=== PATIENT | female | born 1940 | race Caucasian/White ===

== ENCOUNTER 2017-06-25 08:55 | Emergency (ER) | payer MEDICARE, OTHER ==
[~2017-06-25] VITALS: Ht 157.5 cm; Wt 74.8 kg
[~2017-06-25 08:55] MED LIST: AGGRENOX 25 MG-1 CAP PO; ALLOPURINOL100 MG PO; BIOTIN10 MG PO; BYSTOLIC10 MG PO; CENTRUM SILVER1 EAC3 PO; CLONIDINE HCL0.1 MG PO; COQ-10100 MG PO; DOXAZOSIN MESYLA2 MG PO; DOXAZOSIN MESYLA4 MG PO; ECOTRIN81 MG PO; FAMOTIDINE40 MG PO; FEROSUL325 MG PO; FUROSEMIDE40 MG PO; GABAPENTIN300 MG PO; L-METHYL-B6-B11 EACH PO; LIPITOR20 MG PO; MAG-OXIDE400 MG PO; METFORMIN HCL500 MG PO; METOPROLOL SUCC50 MG PO; NIFEDICAL XL30 MG PO; NIFEDIPINE ER30 M1 PO; NITROSTAT0.4 MG SL; PLAVIX75 MG PO; PRINIVIL10 MG PO; PRINIVIL20 MG PO; PROCARDIA XL30 MG PO; VITAMIN D31000 UNIT PO
[2017-06-25 12:17] VITALS: BP 133/72
== END 2017-06-25 11:05 | disposition home or self-care (01) ==
LOC: FSED 08:55
DX: R50.9 Fever, unspecified (principal); R05 Cough; J11.1 Influenza due to unidentified influenza virus with other respiratory manifestations
CPT/HCPCS: 71046; 87400; 99283

== ENCOUNTER 2018-11-25 11:35 | Emergency (ER) | payer MEDICARE, OTHER ==
[~2018-11-25] VITALS: Ht 157.5 cm; Wt 77.1 kg
--- OUTSIDE RECORDS SUMMARY | 2018-11-25 11:37 | XMS REPORT | Clinical Summary ---
Author Author LUANA [facility] Address Unknown Phone Unavailable Care Team Providers Care Resident Care Technician Name Role Phone Fred Julian PCP Darci Michel 31 Unavailable Allergies Comments Active Allergy Reactions Severity Noted Date Heart cath dye had itching and red spots Dye 08/25/2015 ITCHING AND RED SPOTS Iodinated Contrast- Oral Medium 08/25/2015 And Iv Dye Redness Benzalkonium Chloride Other (See 08/25/2015 Comments) Medications End Date Status Medication Sig Dispensed Refills Start Date Active aspirin 81 MG EC tablet Take 81 mg by 0 mouth daily. Active allopurinol (ZYLOPRIM) Take 100 mg 0 100 MG tablet by mouth daily. Active gabapentin (NEURONTIN) Take 300 mg 0 300 MG capsule by mouth daily. Active atorvastatin (LIPITOR) 20 Take 20 mg by 0 MG tablet mouth daily. Active abeynziw-bwm-YQ-lycopen-l Take by mouth 0 utein 0.4-300-250 daily. mg-mcg-mcg Tab Active ferrous sulfate 325 (65 Take 325 mg 0 FE) MG tablet by mouth daily with breakfast. Active biotin 1 mg tablet Take 1,000 0 mcg by mouth daily. Active LEVOMEFOLATE/B6/B12/ALGAL Take by mouth 0 OIL (METANX, ALGAL OIL, daily. ORAL) Active cholecalciferol (VITAMIN Take 1,000 0 D3) 1,000 unit tablet Units by mouth daily. 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 Wound infection 11/03/2015 Superficial postoperative wound infection 10/27/2015 Coronary artery disease involving [place] coronary artery of [place] heart 09/07/2015 with other form of angina pectoris CAD (coronary artery disease) 08/27/2015 Cancer of kidney 08/27/2015 HTN (hypertension) 08/27/2015 HLD (hyperlipidemia) 08/27/2015 Myocardial infarction, old 08/27/2015 Social History Date Tobacco Use Types Packs/Day Years Used Passive Smoke Exposure - Never Smoker Smokeless Tobacco: Never Used Alcohol Use Drinks/Week oz/Week Comments Yes ONE X PER MONTH Sex Assigned at Date Recorded Not on file Industry Job Start Date Occupation Not on file Not on file Not on file Travel End Travel History Travel Start No recent travel history available. Last Filed Vital Signs Not on file Plan of Treatment Not on file Results Not on fileafter 11/24/2017 Insurance Payer Benefit Subscriber ID Type Phone Address Plan / Group MEDICARE MEDICARE A xxxxxxxxxx Medicare B AETNA - MGD CARE AETNA xxxxxxxxxx Comm INDEMNITY NON CONTR Advance Directives For more information, please contact: [facility] [address] [place] [address] Date Inactivated Comments Code Status Date Activated 10/27/2015 2:55 PM Full Code 10/26/2015 2:52 PM This code status was determined by: Patient 09/14/2015 2:10 PM Full Code 09/07/2015 11:52 AM This code status was determined by: Patient
--- OUTSIDE RECORDS SUMMARY | 2018-11-25 11:37 | XMS REPORT ---
Author Author Chino Collins Organization [employer] Address Unknown Phone Unavailable Care Team Providers Care Admitting Officer Name Role Phone Chino Collins CP Unavailable Allergies, Adverse Reactions, Alerts Substance Reaction Event Type Neosporin Info Not Available Drug Allergy Problems Problem Type Condition Code Onset Dates Condition Status Assessment Tinnitus, bilateral H93.13 Active Assessment Sinusitis - Chronic J32.8 Active Assessment Nasal airway obstruction J34.89 Active Problem Sinusitis - Chronic J32.8 Active Problem Zoster without complications B02.9 Active Problem Nasal airway obstruction J34.89 Active Problem Benign paroxysmal vertigo, left ear H81.12 Active Assessment Zoster without complications B02.9 Active Problem Tinnitus, bilateral H93.13 Active Problem Impacted cerumen, bilateral H61.23 Active Medications Medication Code System Code Instructions Start Date End Date Status Dosage Centrum Silver [facility] 84735040160 - Orally Active not defined Pantoprazole Sodium [facility] 43433542268 40 MG Orally Once a day Active 1 tablet Allopurinol [facility] 06848054620 100 MG Orally Once a day Active 1 tablet Ecotrin [facility] [address]-74 Active not defined Lisinopril ND 13107820933 20 MG Orally Once a day Active 1 tablet Gabapentin [facility] 89535278851 300 MG Orally Three times a day Active 1 capsule Meclizine HCl [facility] 04880616137 25 MG Orally Four times a day PRN Jan 10, 2017 Active 1 tablet as needed Metoprolol Succinate ER ND 02977565470 50 MG Orally Once a day Active 1 tablet NIFEdipine [facility] [address]-15 Active not defined Co Q-10 [facility] 22377495706 200 MG Orally Once a day Active 1 capsule with a meal D3 Adult [facility] [address]56 Active not defined Atorvastatin Calcium ND 41515629164 20 MG Orally Once a day Active 1 tablet Biotin [facility] 12341198633 1000 MCG Orally Once a day Active 1 tablet Furosemide ND 01947350552 20 MG Orally Once a day Active 1 tablet Ferrous Sulfate [facility] [address]-91 Active not defined Results No Known Results Summary Purpose [employer] Submission
== END 2018-11-25 12:31 | disposition home or self-care (01) ==
LOC: FSED 11:35
DX: M54.2 Cervicalgia (principal); R51 Headache; M54.12 Radiculopathy, cervical region; I10 Essential (primary) hypertension; E78.5 Hyperlipidemia, unspecified; E11.40 Type 2 diabetes mellitus with diabetic neuropathy, unspecified; Z95.1 Presence of aortocoronary bypass graft
CPT/HCPCS: 99282

== ENCOUNTER 2019-01-21 03:21 | Observation (INO) | payer MEDICARE ==
[~2019-01-21] VITALS: Ht 157.5 cm; Wt 78.0 kg
[2019-01-21] VITALS (11 sets, daily range): BP systolic 120–164; BP diastolic 57–89
--- OUTSIDE RECORDS SUMMARY | 2019-01-21 03:23 | XMS REPORT | Clinical Summary ---
Author Author [facility]UANA [facility] Address Unknown Phone Unavailable Care Team Providers Care Fundraising Manager Name Role Phone Fred Julian PCP Darci Michel 31 Unavailable Allergies Comments Active Allergy Reactions Severity Noted Date Heart cath dye had itching and red spots Dye 08/25/2015 ITCHING AND RED SPOTS Iodinated Contrast Media Medium 08/25/2015 Redness Benzalkonium Chloride Other (See 08/25/2015 Comments) [...] by 0 MG tablet mouth daily. Active oelqtqbw-khj-QW-lycopen-l Take by mouth 0 utein 0.4-300-250 daily. [...] wound infection 10/27/2015 Coronary artery disease involving [place] coronary artery of [place] heart 09/07/2015 with other form of angina [...] Not on file Results Not on fileafter 01/20/2018 Insurance Payer Benefit Subscriber ID Type Phone Address Plan / Group MEDICARE MEDICARE A xxxxxxxxxx Medicare B AETNA - MGD CARE AETNA xxxxxxxxxx Comm INDEMNITY NON CONTR Advance Directives For more information, please contact: [facility] [address] [place] [address] Date Inactivated Comments Code Status Date Activated 10/27/2015 2:55 PM Full Code 10/26/2015 2:52 PM This code status was determined by: Patient 09/14/2015 2:10 PM Full Code 09/07/2015 11:52 AM This code status was determined by: Patient
--- OUTSIDE RECORDS SUMMARY | 2019-01-21 03:23 | XMS REPORT | Continuity of Care Document ---
Author Author [employer] Address Unknown Phone Unavailable Care Team Providers Care Dairy Husbandry Worker Name Role Phone [facility] [employer] Unavailable Unavailable Problems No Data Provided for This Section Medications Medication Details Route Status Patient Instructions Ordering Provider Order Date Source Clonidine Hcl 0.1 Mg Tablet, 1 Tab Oral As Needed as needed for High Blood Pressure Active 07/25/2016 [facility] Famotidine 40 Mg Tablet, Mg Oral Daily Active 07/25/2016 [facility] Magnesium Oxide (Mag-Oxide) 400 Mg Tablet, Mg Oral Three Times A Day Active 07/25/2016 [facility] Metformin Hcl 500 Mg Tablet, 500 Mg Oral Twice A Day Active 07/25/2016 [facility] Methyl-B12/L-Mefolate/B6 Phos (E-Zoftsi-R7-B12 Tablet) 1 Each Tablet, Oral Daily Active 07/25/2016 [facility] Nebivolol Hcl (Bystolic) 10 Mg Tablet, 20 Mg Oral Daily Active 07/25/2016 [facility] Clonidine Hcl 0.1 Mg Tablet, 1 Tab Oral As Needed as needed for High Blood Pressure Active 07/25/2016 [facility] Famotidine 40 Mg Tablet, Mg Oral Daily Active 07/25/2016 [facility] Magnesium Oxide (Mag-Oxide) 400 Mg Tablet, Mg Oral Three Times A Day Active 07/25/2016 [facility] Metformin Hcl 500 Mg Tablet, 500 Mg Oral Twice A Day Active 07/25/2016 [facility] Atorvastatin Calcium (Lipitor) 20 Mg Tablet Bedtime Active [place] 03/30/2014 [facility] Ferrous Sulfate (Ferosul) 325 Mg Tablet Daily Active [place] 03/30/2014 [facility] Clopidogrel Bisulfate (Plavix) 75 Mg Tablet, 75 Mg Oral Daily Active [place] 03/30/2014 [facility] Dipyridamole/Aspirin (Aggrenox 25 Mg-200 Mg Capsule) 1 Cap Capcr, Mg Oral Twice A Day Active 03/30/2014 [facility] Doxazosin Mesylate 4 Mg Tablet, Mg Oral Daily Active 03/30/2014 [facility] Lisinopril (Prinivil) 10 Mg Tablet, 20 Mg Oral Daily Active [place] 03/30/2014 [facility] Nifedipine (Nifedical Xl) 30 Mg Tab.er.24, 30 Mg Oral Daily Active 03/30/2014 [facility] Nitroglycerin (Nitrostat) 0.4 Mg Tab.subl, 0.4 Mg Sublingual Once as needed for Chest Pain Active [place] 03/30/2014 [facility] Atorvastatin Calcium (Lipitor) 20 Mg Tablet Bedtime Active [place] 03/30/2014 [facility] Ferrous Sulfate (Ferosul) 325 Mg Tablet Daily Active [place] 03/30/2014 [facility] Dipyridamole/Aspirin (Aggrenox 25 Mg-200 Mg Capsule) 1 Cap Capcr, Mg Oral Twice A Day Active 03/30/2014 [facility] Lisinopril (Prinivil) 10 Mg Tablet, 20 Mg Oral Daily Active [place] 03/30/2014 [facility] Nifedipine (Nifedical Xl) 30 Mg Tab.er.24, 30 Mg Oral Daily Active 03/30/2014 [facility] Nitroglycerin (Nitrostat) 0.4 Mg Tab.subl, 0.4 Mg Sublingual Once as needed for Chest Pain Active [place] 03/30/2014 [facility] Doxazosin Mesylate 2 Mg Tablet, Unknown Dose Oral Daily Active 03/27/2014 [facility] Nebivolol Hcl (Bystolic) 10 Mg Tablet, 10 Mg Oral Daily Active 03/27/2014 [facility] Nifedipine (Procardia Xl) 30 Mg Tab.er.24, 30 Mg Oral Daily Active 03/27/2014 [facility] Nifedipine (Procardia Xl) 30 Mg Tab.er.24, 30 Mg Oral Daily Active 03/27/2014 [facility] Allopurinol 100 Mg Tablet Daily Active [facility] Aspirin (Ecotrin) 81 Mg Tablet.dr Daily Active [facility] Biotin 10 Mg Tablet Daily Active [facility] Cholecalciferol (Vitamin D3) (Vitamin D3) 1,000 Unit Capsule Daily Active [facility] Furosemide 40 Mg Tablet As Needed Active [facility] Gabapentin 300 Mg Capsule Bedtime Active [facility] Lisinopril (Prinivil) 20 Mg Tablet Twice A Day Active [facility] Metoprolol Succinate 50 Mg Tab.er.24h Twice A Day Active [facility] Mu-Vits-Min Th/Lycopene/Lutein (Centrum Silver Tablet) 1 Each Tablet Daily Active [facility] Nifedipine (Nifedipine Er) 30 Mg Tab.er.24 Bedtime Active [facility] Ubidecarenone (Coq-10) 100 Mg Capsule Daily Active [facility] Allopurinol 100 Mg Tablet Daily Active [facility] Biotin 10 Mg Tablet Daily Active [facility] Cholecalciferol (Vitamin D3) (Vitamin D3) 1,000 Unit Capsule Daily Active [facility] Furosemide 40 Mg Tablet As Needed Active [facility] Lisinopril (Prinivil) 20 Mg Tablet Twice A Day Active [facility] Metoprolol Succinate 50 Mg Tab.er.24h Twice A Day Active [facility] Allergies, Adverse Reactions, Alerts Substance Category Reaction Severity Reaction type Status Date Reported Comments Source Iodine IV IODINE-RASH Unknown Allergy to Substance Active 07/27/2016 [facility] Neomycin RASH Unknown Allergy to Substance Active 07/27/2016 [facility] Bacitracin RASH Unknown Allergy to Substance Active 07/27/2016 [facility] Polymyxin b RASH Unknown Allergy to Substance Active 07/27/2016 [facility] Tramadol Intermediate Allergy to Substance Active 11/25/2018 [facility] Immunizations No Data Provided for This Section Results No Data Provided for This Section Pathology Reports No Data Provided for This Section Diagnostic Reports No Data Provided for This Section Consultation Notes No Data Provided for This Section Discharge Summaries No Data Provided for This Section History and Physicals No Data Provided for This Section Vital Signs No Data Provided for This Section Encounters Location Location Details Encounter Type Encounter Number Reason For Visit Attending Provider ADM Date DC Date Status Source Departed Emergency Room [id number] AQUILES BALDEMAR 06/25/2017 06/25/2017 [facility] Departed Emergency Room [id number] JOSE YO MD 11/25/2018 11/25/2018 [facility] Procedures No Data Provided for This Section Assessment and Plan No Data Provided for This Section Plan of Care Plan of Care Date Source Discharge Date 11/25/18 12:31pm Disposition HOME, SELF-CARE Condition at Discharge Stable Instructions/Education Provided Strains Prescriptions See Medication Section Referrals BRIAN BEJARANO Address: [address] [place] [address] Additional Instructions/Education FOLLOW UP WITH PRIMARY CARE DOCTOR TAKE MEDICATIONS DIRECTED USE ICE AND HEAT NEEDED FOR PAIN 11/25/2018 [facility] Discharge Date 06/25/17 11:05am Disposition HOME, SELF-CARE Condition at Discharge Stable Instructions/Education Provided Flu - Adult Prescriptions See Medication Section 06/25/2017 [facility] Social History Social History Date Source Smoking Status Start Date Stop Date Never Smoker 11/25/2018 [facility] Family History No Data Provided for This Section Advance Directives Order Name Results Value Date Source Advance Directives Advance Directives Directive Response Recorded Date/Time Does the patient have an advance directive? Yes 07/24/16 2:00pm If yes, is advance directive on file with [facility]? No 03/07/11 4:02pm If not on file with [facility] will patient provide a copy? Yes 07/27/16 7:06am 11/25/2018 [facility] Advance Directives Advance Directives Directive Response Recorded Date/Time Does the patient have an advance directive? Yes 07/24/16 2:00pm If yes, is advance directive on file with [facility]? No 03/07/11 4:02pm If not on file with [facility] will patient provide a copy? Yes 07/27/16 7:06am Do you have a Directive to Physician? No 06/25/17 9:30am Do you have a Medical Power of Property Worker? No 06/25/17 9:30am Do you have an out of hospital Do Not Resuscitate Order? No 06/25/17 9:30am Do you have any special needs we should be aware of? No 06/25/17 9:30am Do you have a support person here with you today? Yes 06/25/17 9:30am Did patient receive Notice of Privacy Practices? Yes 06/25/17 9:30am Did patient receive patient rights and responsibilities? Yes 06/25/17 9:30am 06/25/2017 [facility] Functional Status No Data Provided for This Section
--- OUTSIDE RECORDS SUMMARY | 2019-01-21 03:23 | XMS REPORT ---
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 Allergies, Adverse Reactions, Alerts Allergy Name Allergy Type Status Severity Reaction(s) Onset Date Inactive Date Treating Clinician Comments neomycin DA Active U 2018-12-02 00:00:00 bacitracin DA Active U 2018-12-02 00:00:00 tramadol DA Active U 2018-12-02 00:00:00 polymyxin B DA Active U 2018-12-02 00:00:00 NEOSPORIN DA Active U 2008-06-05 00:00:00 No Known Contrast Allergies DA Active U 2008-06-05 00:00:00 No Known Food Allergies DA Active U 2008-06-05 00:00:00 No Known Other Allergies DA Active U 2008-06-05 00:00:00 Medications This patient has no known medications. Results Test Description Test Time Test Comments Text Results Atomic Results Result Comments - XR C-SPINE 4-5 V 2019-01-01 16:11:00 FAX: Fred Mars MD [phone] [place]: St: [facility] FAX: Radhames Richard MD [phone] Name: LESLIE RAMIREZ [facility] : 1940 Age/S: 78/F Lakisha Calloway Unit #: [id number] Loc: [place] [address] Phys: Radhames Cook MD Acct: [id number] Dis Date: Status: REG CLI PHONE #: [phone] Exam Date: 01/01/2019 1200 FAX #: [phone] Reason: CERVICAL DISC HERNIATION EXAMS: CPT CODE: [id number] XR C-SPINE 4-5 V 68977 HISTORY: CERVICAL DISC HERNIATION TECHNIQUE: AP, flexion and extension, lateral, and open mouth odontoid views of the cervical spine. COMPARISON: Radiographs of the cervical spine December 05, 2018 FINDINGS: Postsurgical changes of anterior fusion of C4-C7 with interbody implants. Vertebral body alignment is satisfactory. Residual disc spaces are preserved. Vertebral body heights are preserved. No prevertebral soft tissue swelling. Lung apices are clear. IMPRESSION: Satisfactory alignment of the cervical spine following C4-C7 fusion with interbody implants. at 1611 Reported and signed by: Dean Gandhi MD CC: Fred Julian; Radhames Cook MD Technologist: Merari Adkins(Snuil) Trnscrd Date/Time/By: 01/01/2019 (6600) : By: [email or web address] Orig Print D/T: S: 01/01/2019 (5959) PAGE 1 Signed Report INTERVERTEBRAL DISC 2018-12-05 16:42:00 RUN DATE: 12/05/18 [place] - Lab PAGE 1 RUN TIME: 1642 Specimen Inquiry RUN USER: INTERFACE PATIENT: LESLIE RAMIREZ LOC: [place] U #: [id number] AGE/SX: 78/F [facility]: Radhames Cook MD : 40 BED: A DIS: 12/05/18 STATUS: DIS Sonya TLOC: SPEC #: [id number] RECD: 12/04/18 STATUS: JUANITO RE #: [id number] HELEN: 12/04/18- SUBM DR: Radhames Cook MD ENTERED: 12/04/182685 SP TYPE: INT DISC OTHR DR: Eliceo Huff MD, William W DO Murphy, Thomas J MD Younis, Antoine G MDORDERED: PURVI COPIES TO: Eliceo Huff MD [address] [place] [address] Morgan Jackson DO [address] [place] [address] [place] [address] [place] [address] Radhames Cook MD [address] [place], [place] [id number] Jona Noe MD [address] [place] [address] PROCEDURES: GROSS (12/05/18-1543) TISSUES: CERVICAL VERTEBRA, NOS - DISC CLINICAL HISTORY COLLECTION DATE: 12/04/18 C4-5, C5-6, C6-7, SPONDYLOSIS AND SPINAL STENOSIS CONTINUED ON NEXT PAGE RUN DATE: 12/05/18 [facility] PAGE 2 RUN TIME: 1642 Specimen Inquiry RUN USER: INTERFACE SPEC #: [id number] PATIENT: LESLIE RAMIREZ #[id number] (Continued) FINAL DIAGNOSIS Cervical disc material, C4-C7, discectomy: FRAGMENTS OF CARTILAGE WITH DEGENERATIVE CHANGE FRAGMENTS OF UNREMARKABLE TRABECULAR BONE NEGATIVE FOR MALIGNANCY RRB/denis D 32279, 38468 MACROSCOPIC The specimen is received in formalin, labeled with the patient's name, and identified as "cervical disc". It consists of multiple fragments of davison soft and rubbery tissue and minute portions of bone measuring 2.5 x 2.0 x 0.6 cm in aggregate. The specimen is entirely submitted in a single cassette after light decalcification. GROSS PERFORMED AT [facility] [address] [place] [address] [phone] MICROSCOPIC All of the stains, including any controls performed, stain appropriately. MICROSCOPIC PERFORMED AT [facility] [address] [place] [address] (P)[phone] PERFORMING SITE Diagnosis performed at: [facility], [place] [address] [facility], [place] [address] Signed SIGNATURE ON FILE Dennis Brooke MD 12/05/18 1642 END OF REPORT - XR C-SPINE 2-3 VIEWS 2018-12-05 08:07:00 FAX: Fred Mars MD [phone] [place]: B St: ADM FAX: Radhames Richard MD [phone] FAX: Jona Smith MD [phone] Name: LESLIE RAMIREZ [facility] : 1940 Age/S: 78/F [address] Unit #: [id number] Loc: V.[address] [place] [address] Phys: Radhames Cook MD Acct: [id number] Dis Date: Status: ADM IN PHONE #: [phone] Exam Date: 12/05/2018 0748 FAX #: [phone] Reason: Status post fusion EXAMS: CPT CODE: [id number] XR C-SPINE 2-3 VIEWS 85948 HISTORY: Status post fusion TECHNIQUE: AP and lateral views of the cervical spine. COMPARISON: None FINDINGS: Craniocervical and cervicothoracic articulations are appropriate. Degenerative changes of the anterior atlantoaxial joint. C4-C7 discectomy with interbody implants and anterior fusion plate. Postoperative vertebral body alignment is satisfactory. Vertebral body heights are preserved. Residual disc spaces are preserved. Cervical facet arthrosis. Postoperative prevertebral soft tissue swelling. Lung apices are clear. IMPRESSION: Status post anterior C4-C7 discectomy and fusion. at 0807 Reported and signed by: Melly Moreau D.O. CC: Fred Julian; Radhames Cook MD; Jona Noe Technologist: VOLODYMYR PEREZ JR Trnscrd Date/Time/By: 12/05/2018 (0807) : By: [email or web address] Orig Print D/T: S: 12/05/2018 (0811) PAGE 1 Signed Report GLUBED 2018-12-04 09:06:00 GLUBED (test code=GLUBED) 113 mg/dL 74-106 Performed by certified automatic die cutting machine operator at [facility] BASIC METABOLIC [id number] 12:29:00* Test Item Value Reference Range Comments SODIUM (test code=NA) 140 mmol/L 136-145 POTASSIUM (test code=K) 4.6 mmol/L 3.5-5.1 CHLORIDE (test code=CL) 107.0 mmol/L 98-107 CARBON DIOXIDE (test code=CO2) 25.0 mmol/L 21-32 ANION GAP (test code=GAP) 12.6 10-20 GLUCOSE (test code=GLU) 115 mg/dL 74-106 BLOOD UREA NITROGEN (test code=BUN) 34 mg/dL 7-18 GLOMERULAR FILTRATION RATE (test code=GFR) 34 mL/min >=60 Estimated GFR by using Modified MDRD formula.Chronic kidney disease is defined as either kidney damageor GFR <60 mL/min/1.73 m2 for >3 months. CREATININE (test code=CREAT) 1.50 mg/dL 0.55-1.02 Note change in reference range due to change in reagent. BUN/CREATININE RATIO (test code=BUN/CREA) 22.7 10-20 CALCIUM (test code=CA) 9.7 mg/dL 8.5-10.1 BASIC METABOLIC [id number] 12:25:00* Test Item Value Reference Range Comments SODIUM (test code=NA) 140 mmol/L 136-145 POTASSIUM (test code=K) 4.6 mmol/L 3.5-5.1 CHLORIDE (test code=CL) 107.0 mmol/L 98-107 CARBON DIOXIDE (test code=CO2) mmol/L 21-32 ANION GAP (test code=GAP) 10-20 GLUCOSE (test code=GLU) mg/dL 74-106 BLOOD UREA NITROGEN (test code=BUN) mg/dL 7-18 GLOMERULAR FILTRATION RATE (test code=GFR) mL/min >=60 CREATININE (test code=CREAT) mg/dL 0.55-1.02 BUN/CREATININE RATIO (test code=BUN/CREA) 10-20 CALCIUM (test code=CA) mg/dL 8.5-10.1 PROTHROMBIN [id number] 12:07:00* Test Item Value Reference Range Comments PROTHROMBIN TIME PATIENT (test code=PTP) 12.2 seconds 9.0-14.0 INTERNATIONAL NORMAL RATIO (test code=INR) 1.0 0.8-1.2 The therapeutic range for oral anticoagulant therapy formost indications is an international normalized ratio (INR)of between 2.0 and 3.0. The recommended therapeutic INRrange for various clinical situations is listed below: Clinical Situation INR range Pulmonary e mbolism treatment (2.0-3.0)Venous thrombosis treatmentVenous thrombosis prophylaxis (high risk surgery)Prevention of systemic embolism from: Acute myocardial infarction Valvular heart disease Atrial fibrillation Mechanical prosthetic heart valves (2.5-3.5) THROMBOPLASTIN TIME [id number] 12:07:00* Test Item Value Reference Range Comments THROMBOPLASTIN TIME PARTIAL (test code=PTT) 40.5 seconds 25.0-36.5 - XR CHEST 2 [id number] 11:58:00 FAX: Fred Mars MD [phone] [place]: O St: PRE FAX: Radhames Richard MD [phone] FAX: Jona Smith MD [phone] Name: LESLIE RAMIREZ [facility] : 1940 Age/S: 78/F [address] [facility] Unit #: [id number] Loc: [place] [address] Phys: Radhames Cook MD Acct: [id number] Dis Date: Status: PRE SDC PH ONE #: [phone] Exam Date: 12/02/2018 1140 FAX #: [phone] Reason: PRE OP EXAMS: CPT CODE: [id number] XR CHEST 2 V 88833 HISTORY: Preop. COMPARISON: None available. AP and lateral view of the chest: No acute infiltrates, effusion or congestion. Cardiac and the mediastinal silhouette are normal. DJD of the dorsal spine. IMPRESSION: No acute infiltrates, effusion or conges tion. at 11 58 Reported and signed by: Guanako Morris M.D. CC: Fred Julian; Radhames Cook MD; Jona Noe [facility] ologist: DARRELL ADAN RT (R) Trnscrd Date/Salvatore e/By: 12/02/2018 (1158) : By: [email or web address] Orig Print D/T: S: 12/02/2018 (9226) PAGE 1 Signed Report CBC W/AUTO [id number] 11:54:00* Test Item Value Reference Range Comments WHITE BLOOD CELL (test code=WBC) 8.7 K/mm3 4.5-12.5 RED BLOOD CELL (test code=RBC) 3.82 mill/mm3 3.7-5.2 HEMOGLOBIN (test code=HGB) 12.4 gram/dL 11.5-15.5 HEMATOCRIT (test code=HCT) 38.8 % 36.0-46.0 MEAN CELL VOLUME (test code=MCV) 101.6 fL 80-98 MEAN CELL HGB (test code=MCH) 32.5 picogram 27.0-33.0 MEAN CELL HGB CONCETRATION (test code=MCHC) 32.0 gram/dL 33.0-36.0 RED CELL DISTRIBUTION WIDTH (test code=RDW) 13.3 % 11.6-16.2 RED CELL DISTRIBUTION WIDTH SD (test code=RDW-SD) 49.7 fL 37.0-51.0 PLATELET COUNT (test code=PLT) 250 K/mm3 150-450 MEAN PLATELET VOLUME (test code=MPV) 10.2 fL 6.7-11.0 NEUTROPHIL % (test code=NT%) 66.2 % 39.0-69.0 IMMATURE GRANULOCYTE % (test code=IG%) 0.2 % 0.0-5.0 LYMPHOCYTE % (test code=LY%) 20.8 % 25.0-55.0 MONOCYTE % (test code=MO%) 7.6 % 0.0-10.0 EOSINOPHIL % (test code=EO%) 4.6 % 0.0-5.0 BASOPHIL % (test code=BA%) 0.6 % 0.0-1.0 NUCLEATED RBC % (test code=NRBC%) 0.0 % 0-0 NEUTROPHIL # (test code=NT#) 5.78 K/mm3 1.8-7.7 IMMATURE GRANULOCYTE # (test code=IG#) 0.02 x10 3/uL 0-0.03 LYMPHOCYTE # (test code=LY#) 1.81 K/mm3 1.0-5.0 MONOCYTE # (test code=MO#) 0.66 K/mm3 0-0.8 EOSINOPHIL # (test code=EO#) 0.40 K/mm3 0.0-0.5 BASOPHIL # (test code=BA#) 0.05 K/mm3 0.0-0.2 NUCLEATED RBC # (test code=NRBC#) 0.00 K/mm3 0.0-0.1 CBC W/AUTO [id number] 11:52:00* Test Item Value Reference Range Comments WHITE BLOOD CELL (test code=WBC) K/mm3 4.5-12.5 RED BLOOD CELL (test code=RBC) mill/mm3 3.7-5.2 HEMOGLOBIN (test code=HGB) 12.4 gram/dL 11.5-15.5 HEMATOCRIT (test code=HCT) 38.8 % 36.0-46.0 MEAN CELL VOLUME (test code=MCV) fL 80-98 MEAN CELL HGB (test code=MCH) picogram 27.0-33.0 MEAN CELL HGB CONCETRATION (test code=MCHC) gram/dL 33.0-36.0 RED CELL DISTRIBUTION WIDTH (test code=RDW) % 11.6-16.2 RED CELL DISTRIBUTION WIDTH SD (test code=RDW-SD) fL 37.0-51.0 PLATELET COUNT (test code=PLT) K/mm3 150-450 MEAN PLATELET VOLUME (test code=MPV) fL 6.7-11.0 NEUTROPHIL % (test code=NT%) % 39.0-69.0 IMMATURE GRANULOCYTE % (test code=IG%) % 0.0-5.0 LYMPHOCYTE % (test code=LY%) % 25.0-55.0 MONOCYTE % (test code=MO%) % 0.0-10.0 EOSINOPHIL % (test code=EO%) % 0.0-5.0 BASOPHIL % (test code=BA%) % 0.0-1.0 NEUTROPHIL # (test code=NT#) K/mm3 1.8-7.7 LYMPHOCYTE # (test code=LY#) K/mm3 1.0-5.0 MONOCYTE # (test code=MO#) K/mm3 0-0.8 EOSINOPHIL # (test code=EO#) K/mm3 0.0-0.5 BASOPHIL # (test code=BA#) K/mm3 0.0-0.2
[2019-01-21 03:38] LABS: BASOPHILS # (AUTO) 0.1 (0.0-0.1); BASOPHILS % 0.5 % (0.0-1.0); EOSINOPHILS # (AUTO) 0.4 (0.0-0.4); EOSINOPHILS % 4.1 % (0.0-6.0); HEMATOCRIT 36.2 % (34.2-44.1); LYMPHOCYTES # (AUTO) 2.3 (1.0-3.2); LYMPHOCYTES % 24.2 % (18.0-39.1); MEAN CORPUSCULAR HEMOGLOBIN 33.2 pg (28-32); MEAN CORPUSCULAR HGB CONC 33.1 g/dL (31-35); MEAN CORPUSCULAR VOLUME 100.3 fL (81-99); MONOCYTES # (AUTO) 0.7 (0.2-0.8); MONOCYTES % 7.1 % (4.4-11.3); NEUTROPHILS # (AUTO) 5.9 (2.1-6.9); NEUTROPHILS % 63.7 % (38.7-80.0); PLATELET COUNT 264 x10e3/uL (140-360); RED BLOOD COUNT 3.61 x10e6/uL (3.6-5.1); RED CELL DISTRIBUTION WIDTH 13.1 % (11.7-14.4)
[2019-01-21] MEDS ORDERED: ZEMPLAR1 MCG PO (03:39)
[2019-01-21] MEDS ORDERED: METFORMIN HCL500 MG PO (03:39)
[2019-01-21] MEDS ORDERED: PANTOPRAZOLE SO40 MG PO (03:39)
[2019-01-21] MEDS ORDERED: CLONIDINE HCL0.1 MG PO (03:42)
[2019-01-21 03:53] LABS: INR 0.89; PROTHROMBIN TIME 12.5 seconds (11.9-14.5)
[2019-01-21 03:54] LABS: PARTIAL THROMBOPLASTIN TIME 32.4 seconds (23.8-35.5)
[2019-01-21 04:02] LABS: ALBUMIN 3.9 g/dL (3.5-5.0); ALBUMIN/GLOBULIN RATIO 1.1 (0.8-2.0); CALCIUM 10.2 mg/dL (8.4-10.2); CREATININE, SERUM 1.61 mg/dL (0.57-1.11); MAGNESIUM 1.2 MG/DL (1.3-2.1)
[2019-01-21 04:09] LABS: CREATINE KINASE MB 1.5 ng/mL (0-5.0)
--- NOTE | 2019-01-21 04:15 | NUR ---
UA OBTAINED AND SENT TO LAB FOR ANALYSIS PER MD ORDERS; PT ATTACHED TO BS/NETWORK OPERATIONS SPECIALIST; REMAINS AAOX3, PLEASANT DEMEANOR; PT/PTS FAMILY DENIES ANY NEEDS OR CONCERNS AT THIS TIME
--- NOTE | 2019-01-21 04:26 | Diagnostic Imaging Report ---
Examination: Single AP view of the chest. COMPARISON: None. INDICATION: Syncope and fall IMPRESSION: 1. Lines and Tubes: None 2. Lungs are grossly clear. No consolidation or effusion. 3. Cardiomediastinal silhouette is normal. Pulmonary vasculature is normal. CABG changes 4. No acute bony abnormalities. Prominent osteophytes are noted in bilateral acromions. Curvilinear calcification projecting between the acromion and right humeral head may represent ligamentous calcification. Signed by: Dr. Jj Lemus M.D. on 01/21/2019 4:23 AM
--- NOTE | 2019-01-21 04:30 | Diagnostic Imaging Report ---
History:syncope Comparison studies: None Technique: Axial images were obtained from the skull base to the vertex. Coronal and sagittal images reconstructed from the axial data. Dose modulation, iterative reconstruction, and/or weight based adjustment of the mA/kV was utilized to reduce the radiation dose to as low as reasonably achievable. Intravenous contrast: None Findings: Scalp/skull: No abnormalities. Extra-axial spaces: No masses. No fluid collections. Brain sulci: Mildly prominent. Ventricles: Mild compensatory dilatation. No hydrocephalus. Parenchyma: Confluent hypodensities in the supratentorial white matter are small vessel ischemic changes. No masses, hemorrhage, acute or chronic cortical vascular insults. Sellar/suprasellar region: No abnormalities. Craniocervical junction: Patent foramen magnum. No Chiari one malformation. Incidental findings: Atherosclerotic calcifications in the carotid siphons and right vertebral artery. Impression: No acute abnormalities. Chronic findings: 1. Mild generalized volume loss. 2. Moderate supratentorial white matter small vessel ischemic changes. Signed by: Dr. Richard Perry M.D. on 01/21/2019 4:26 AM
[2019-01-21 04:33] LABS: BILIRUBIN,URINE NEGATIVE (NEGATIVE); CLARITY,URINE CLEAR (CLEAR); COLOR,URINE YELLOW (YELLOW); KETONES,URINE NEGATIVE (NEGATIVE); LEUKOCYTE ESTERASE ,URINE TRACE (NEGATIVE); NITRITE,URINE NEGATIVE (NEGATIVE); PROTEIN,URINE DIPSTICK NEGATIVE (NEGATIVE); URINE UROBILINOGEN 0.2 mg/dL (0.2 - 1)
--- NOTE | 2019-01-21 04:37 | Diagnostic Imaging Report ---
History: Syncope Comparison studies: None Technique: Axial images were obtained through the cervical region.. Coronal and sagittal images reconstructed from the axial data. Dose modulation, iterative reconstruction, and/or weight based adjustment of the mA/kV was utilized to reduce the radiation dose to as low as reasonably achievable. Intravenous contrast: None Findings: Fractures: None. Soft tissues: Incidental scattered atherosclerotic vascular calcifications. Atlantoaxial articulation: Intact. Alignment: Normal lordosis. No scoliosis. Cervicomedullary junction: No abnormalities. The foramen magnum is patent. Postsurgical changes: * Patient status post anterior cervical fusion (ACDF) from C4 to C7. * Bone grafts are in the intervening disc spaces but the disc spaces are not fused. * A prevertebral plate is in place. Paired screws are embedded within the vertebral bodies from C4 to C7. * No hardware loosening or failure. Vertebrae: No infection or neoplasm. Degenerative changes: * Moderate at the atlantoaxial articulation. * Focal anterior osteophytes at C3-4, moderately degenerated disc at C7-T1. * Facet arthrosis throughout the cervical region, worst on the left at C2-3, right C3-4. * Foraminal stenosis, severe right at C3-4, moderate right C4-5, bilaterally at C5-6 and right at C6-C7 due to facet and uncoarthrosis. * Superimposed spinal canal stenosis from C3 through C7 is worse on the right at C4-5 and at C5-6 due to disc osteophyte complexes. IMPRESSION: 1. No acute abnormalities. No fractures. 2. Cannot adequately evaluate for ligament, spinal cord and or vascular abnormalities. 3. Patient status post ACDF from C4 to C7. 4. Degenerative spinal canal and foraminal stenosis as described. Signed by: Dr. Richard Perry M.D. on 01/21/2019 4:34 AM
[2019-01-21 04:42] LABS: BACTERIA,URINE MODERATE /HPF; EPITHELIAL CELLS,URINE FEW /LPF; RBC,URINE 0-5 /HPF (0-5); WBC,URINE (MAN) 0-5 /HPF (0-5)
[2019-01-21] MEDS ORDERED: MAGNESIUM SULF 1GRAM/DEXTROSE 100 ML IV ONE (05:00)
[2019-01-21] MEDS ORDERED: ACETAMINOPHEN 325 MG TAB PO PRN (05:00)
[2019-01-21] MEDS ORDERED: ONDANSETRON HCL INJ 2MG/ML 2ML 2 MG/ML VIAL IV PRN (05:00)
[2019-01-21] MEDS ORDERED: DEXTROSE 50% SYRINGE 50 ML IV PRN (05:15)
--- OUTSIDE RECORDS SUMMARY | 2019-01-21 05:16 | XMS REPORT | Continuity of Care Document ---
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 Name Role Phone [facility] [employer] Information Exchange Unavailable Unavailable Problems No Data Provided for This Section Medications Medication Details Route Status Patient Instructions Ordering Provider Order Date Source Clonidine Hcl 0.1 Mg Tablet, 1 Tab Oral As Needed as needed for High Blood Pressure Active 07/25/2016 [facility] Famotidine 40 Mg Tablet, Mg Oral Daily Active 07/25/2016 [facility] Magnesium Oxide (Mag-Oxide) 400 Mg Tablet, Mg Oral Three Times A Day Active 07/25/2016 [facility] Metformin Hcl 500 Mg Tablet, 500 Mg Oral Twice A Day Active 07/25/2016 [facility] Methyl-B12/L-Mefolate/B6 Phos (P-Qbhfvg-L3-B12 Tablet) 1 Each Tablet, Oral Daily Active 07/25/2016 [facility] Nebivolol Hcl (Bystolic) 10 Mg Tablet, 20 Mg Oral Daily Active 07/25/2016 [facility] Clonidine Hcl 0.1 Mg Tablet, 1 Tab Oral As Needed as needed for High Blood Pressure Active 07/25/2016 [facility] Famotidine 40 Mg Tablet, Mg Oral Daily Active 07/25/2016 [facility] Magnesium Oxide (Mag-Oxide) 400 Mg Tablet, Mg Oral Three Times A Day Active 07/25/2016 [facility] Metformin Hcl 500 Mg Tablet, 500 Mg Oral Twice A Day Active 07/25/2016 [facility] Atorvastatin Calcium (Lipitor) 20 Mg Tablet Bedtime Active [place] 03/30/2014 [facility] Ferrous Sulfate (Ferosul) 325 Mg Tablet Daily Active [place] 03/30/2014 [facility] Clopidogrel Bisulfate (Plavix) 75 Mg Tablet, 75 Mg Oral Daily Active [place] 03/30/2014 [facility] Dipyridamole/Aspirin (Aggrenox 25 Mg-200 Mg Capsule) 1 Cap Capcr, Mg Oral Twice A Day Active 03/30/2014 [facility] Doxazosin Mesylate 4 Mg Tablet, Mg Oral Daily Active 03/30/2014 [facility] Lisinopril (Prinivil) 10 Mg Tablet, 20 Mg Oral Daily Active [place] 03/30/2014 [facility] Nifedipine (Nifedical Xl) 30 Mg Tab.er.24, 30 Mg Oral Daily Active 03/30/2014 [facility] Nitroglycerin (Nitrostat) 0.4 Mg Tab.subl, 0.4 Mg Sublingual Once as needed for Chest Pain Active [place] 03/30/2014 [facility] Atorvastatin Calcium (Lipitor) 20 Mg Tablet Bedtime Active [place] 03/30/2014 [facility] Ferrous Sulfate (Ferosul) 325 Mg Tablet Daily Active [place] 03/30/2014 [facility] Dipyridamole/Aspirin (Aggrenox 25 Mg-200 Mg Capsule) 1 Cap Capcr, Mg Oral Twice A Day Active 03/30/2014 [facility] Lisinopril (Prinivil) 10 Mg Tablet, 20 Mg Oral Daily Active [place] 03/30/2014 [facility] Nifedipine (Nifedical Xl) 30 Mg Tab.er.24, 30 Mg Oral Daily Active 03/30/2014 [facility] Nitroglycerin (Nitrostat) 0.4 Mg Tab.subl, 0.4 Mg Sublingual Once as needed for Chest Pain Active [place] 03/30/2014 [facility] Doxazosin Mesylate 2 Mg Tablet, Unknown Dose Oral Daily Active 03/27/2014 [facility] Nebivolol Hcl (Bystolic) 10 Mg Tablet, 10 Mg Oral Daily Active 03/27/2014 [facility] Nifedipine (Procardia Xl) 30 Mg Tab.er.24, 30 Mg Oral Daily Active 03/27/2014 [facility] Nifedipine (Procardia Xl) 30 Mg Tab.er.24, 30 Mg Oral Daily Active 03/27/2014 [facility] Allopurinol 100 Mg Tablet Daily Active [facility] Aspirin (Ecotrin) 81 Mg Tablet.dr Daily Active [facility] Biotin 10 Mg Tablet Daily Active [facility] Cholecalciferol (Vitamin D3) (Vitamin D3) 1,000 Unit Capsule Daily Active [facility] Furosemide 40 Mg Tablet As Needed Active [facility] Gabapentin 300 Mg Capsule Bedtime Active [facility] Lisinopril (Prinivil) 20 Mg Tablet Twice A Day Active [facility] Metoprolol Succinate 50 Mg Tab.er.24h Twice A Day Active [facility] Mu-Vits-Min Th/Lycopene/Lutein (Centrum Silver Tablet) 1 Each Tablet Daily Active [facility] Nifedipine (Nifedipine Er) 30 Mg Tab.er.24 Bedtime Active [facility] Ubidecarenone (Coq-10) 100 Mg Capsule Daily Active [facility] Allopurinol 100 Mg Tablet Daily Active [facility] Biotin 10 Mg Tablet Daily Active [facility] Cholecalciferol (Vitamin D3) (Vitamin D3) 1,000 Unit Capsule Daily Active [facility] Furosemide 40 Mg Tablet As Needed Active [facility] Lisinopril (Prinivil) 20 Mg Tablet Twice A Day Active [facility] Metoprolol Succinate 50 Mg Tab.er.24h Twice A Day Active [facility] Allergies, Adverse Reactions, Alerts Substance Category Reaction Severity Reaction type Status Date Reported Comments Source Iodine IV IODINE-RASH Unknown Allergy to Substance Active 07/27/2016 [facility] Neomycin RASH Unknown Allergy to Substance Active 07/27/2016 [facility] Bacitracin RASH Unknown Allergy to Substance Active 07/27/2016 [facility] Polymyxin b RASH Unknown Allergy to Substance Active 07/27/2016 [facility] Tramadol Intermediate Allergy to Substance Active 11/25/2018 [facility] Immunizations No Data Provided for This Section [...] DC Date Status Source Departed Emergency Room [id number] AQUILES BALDEMAR 06/25/2017 06/25/2017 [facility] Departed Emergency Room [id number] JOSE YO MD 11/25/2018 11/25/2018 [facility] Procedures No Data Provided for This Section Assessment and Plan No Data Provided for This Section Plan of Care Plan of Care Date Source Discharge Date 11/25/18 12:31pm Disposition HOME, SELF-CARE Condition at Discharge Stable Instructions/Education Provided Strains Prescriptions See Medication Section Referrals BRIAN BEJARANO Address: [address] [place] [address] Additional Instructions/Education FOLLOW UP WITH PRIMARY CARE DOCTOR TAKE MEDICATIONS DIRECTED USE ICE AND HEAT NEEDED FOR PAIN 11/25/2018 [facility] Discharge Date 06/25/17 11:05am Disposition HOME, SELF-CARE Condition at Discharge Stable Instructions/Education Provided Flu - Adult Prescriptions See Medication Section 06/25/2017 [facility] Social History Social History Date Source Smoking Status Start Date Stop Date Never Smoker 11/25/2018 [facility] Family History No Data Provided for This Section Advance Directives Order Name Results Value Date Source Advance Directives Advance Directives Directive Response Recorded Date/Time Does the patient have an advance directive? Yes 07/24/16 2:00pm If yes, is advance directive on file with [facility]? No 03/07/11 4:02pm If not on file with [facility] will patient provide a copy? Yes 07/27/16 7:06am 11/25/2018 [facility] Advance Directives Advance Directives Directive Response Recorded Date/Time Does the patient have an advance directive? Yes 07/24/16 2:00pm If yes, is advance directive on file with [facility]? No 03/07/11 4:02pm If not on file with [facility] will patient provide a copy? Yes 07/27/16 7:06am Do you have a Directive to Physician? No 06/25/17 9:30am Do you have a Medical Power of Sea Captain? No 06/25/17 9:30am Do you have an [...] rights and responsibilities? Yes 06/25/17 9:30am 06/25/2017 [facility] Functional Status No Data Provided for This Section
--- OUTSIDE RECORDS SUMMARY | 2019-01-21 05:16 | XMS REPORT | Clinical Summary ---
Author Author [facility] Address Unknown Phone Unavailable Care Team Providers Care Core Driller Helper Name Role Phone Fred Julian PCP Darci [...] by 0 MG tablet mouth daily. Active [id number]-l Take by mouth 0 utein 0.4-300-250 daily. [...] wound infection 10/27/2015 Coronary artery disease involving [place] coronary artery of [place] heart 09/07/2015 with other form of angina [...] Advance Directives For more information, please contact: [facility] [address] [place] [address] Date Inactivated Comments Code Status Date Activated 10/27/2015 2:55 PM Full Code 10/26/2015 2:52 PM This code status was determined by: Patient 09/14/2015 2:10 PM Full Code 09/07/2015 11:52 AM This code status was determined by: Patient
[2019-01-21] MEDS: SODIUM CHLORIDE 0.9% 1000ML 1,000 ML IV SCH ×3 (06:30→20:45)
--- NOTE | 2019-01-21 06:38 | NUR ---
PT ARRIVED ON THE UNIT VIA STRETCHER AT 0606. RESPIRATION IS EVEN AND UNLABORED, NO DISTRESS NOTED. BED IS IN THE LOWEST POSITION, LOCKED, AND CALL LIGHT WITHIN REACH. WILL CONTINUE TO MONITOR.
--- NOTE | 2019-01-21 06:55 | NUR ---
rounded with shift supervisor melting nurse, patient aware of change and in no distress. call woods within reach, bed in lowest position and family at bedside.
[2019-01-21] MEDS ORDERED: INSULIN LISPRO 100 UNIT/1 ML 3ML VIAL SQ SCH (07:30)
[2019-01-21] MEDS: ASPIRIN 81 MG ENTERIC COATED PO SCH (08:10)
[2019-01-21] MEDS: PANTOPRAZOLE SOD 40 MG TABEC PO SCH (08:10)
[2019-01-21] MEDS: METFORMIN HCL 500 MG TAB PO SCH ×2 (08:10→16:47)
[2019-01-21] MEDS ORDERED: ONDANSETRON HCL 4 MG ORAL DISINTEGRATING TAB PO PRN (08:30)
[2019-01-21] MEDS ORDERED: METOPROLOL TARTRATE 25 MG TAB PO SCH (09:00)
[2019-01-21 11:47] LABS: CREATINE KINASE 161 IU/L (29-168)
[2019-01-21] MEDS ORDERED: PARICALCITOL 1 MCG CAPSULE PO SCH ×2 (12:00)
[2019-01-21] MEDS ORDERED: INFLUENZA VIRUS VAC SPLIT INJ 0.5 ML SYR IM ONE (16:30)
[2019-01-21] MEDS ORDERED: PNEUMOCOCCAL VACCINE POLYVALENT 23 MCG/0.5 ML VIAL IM ONE (16:30)
[2019-01-21] MEDS: METOPROLOL SUCCINATE 50 MG TAB XL PO SCH (16:47)
[2019-01-21] MEDS: LISINOPRIL 20 MG TAB PO SCH (16:47)
--- NOTE | 2019-01-21 18:51 | NUR ---
rounded with rn shift mgr nurse, patient aware of change and in no distress. call woods within reach and bed in lowest position.
[2019-01-21 18:57] LABS: CREATINE KINASE 100 IU/L (29-168)
[2019-01-21] MEDS ORDERED: NIFEDIPINE CR 30 MG TAB PO SCH (21:00)
[2019-01-21] MEDS ORDERED: GABAPENTIN 300 MG CAP PO SCH (21:00)
[2019-01-22 04:52] VITALS: BP 141/64
[2019-01-22 05:46] LABS: BASOPHILS % 0.4 % (0.0-1.0); EOSINOPHILS # (AUTO) 0.4 (0.0-0.4); EOSINOPHILS % 5.4 % (0.0-6.0); HEMOGLOBIN 9.9 g/dL (12.0-16.0); LYMPHOCYTES # (AUTO) 2.4 (1.0-3.2); LYMPHOCYTES % 34.8 % (18.0-39.1); MEAN CORPUSCULAR HEMOGLOBIN 32.8 pg (28-32); MEAN CORPUSCULAR HGB CONC 31.9 g/dL (31-35); MEAN CORPUSCULAR VOLUME 102.6 fL (81-99); MONOCYTES # (AUTO) 0.6 (0.2-0.8); NEUTROPHILS # (AUTO) 3.5 (2.1-6.9); NEUTROPHILS % 51.1 % (38.7-80.0); PLATELET COUNT 216 x10e3/uL (140-360); RED BLOOD COUNT 3.02 x10e6/uL (3.6-5.1); RED CELL DISTRIBUTION WIDTH 13.2 % (11.7-14.4)
[2019-01-22 06:25] LABS: ALBUMIN 3.1 g/dL (3.5-5.0); ALBUMIN/GLOBULIN RATIO 1.1 (0.8-2.0); ANION GAP 12.5 mmol/L (8-16); CALCIUM 9.3 mg/dL (8.4-10.2); CHOL/HDL RATIO 2.8 (3.0-3.6); CREATININE, SERUM 1.08 mg/dL (0.57-1.11); MAGNESIUM 1.4 MG/DL (1.3-2.1); POTASSIUM 4.5 mmol/L (3.5-5.1)
[2019-01-22 07:17] VITALS: BP 160/68
[2019-01-22 08:22] VITALS: BP 160/68
[2019-01-22] MEDS ORDERED: PARICALCITOL 1 MCG CAPSULE PO SCH (09:00)
[2019-01-22] MEDS ORDERED: ALLOPURINOL 100 MG TAB PO SCH (09:00)
[2019-01-22] MEDS: METOPROLOL SUCCINATE 50 MG TAB XL PO SCH (09:00)
[2019-01-22] MEDS ORDERED: ASPIRIN 81 MG ENTERIC COATED PO SCH (09:00)
[2019-01-22] MEDS ORDERED: FERROUS SULFATE 325 MG TAB PO SCH (09:00)
[2019-01-22] MEDS: PANTOPRAZOLE SOD 40 MG TABEC PO SCH (09:47)
[2019-01-22] MEDS: ASPIRIN 81 MG ENTERIC COATED PO SCH (09:47)
[2019-01-22] MEDS: LISINOPRIL 20 MG TAB PO SCH (09:47)
[2019-01-22] MEDS: METFORMIN HCL 500 MG TAB PO SCH (09:47)
--- NOTE | 2019-01-22 10:32 | NUR ---
Patient discharged home, no prescription as per Dr Burnette, IV canula removed with tip intact no ss of infiltration, not in any distress or pain, at bed side to take her home. transported via wheelchair to [facility]
--- NOTE | 2019-01-23 07:01 | Discharge Summary ---
DISCHARGE DIAGNOSES: 1. Vasovagal syncope. 2. Mild dehydration. 3. Coronary artery disease, stable. 4. Type 2 diabetes mellitus, controlled. HOSPITAL COURSE: Ms. Balderrama is a pleasant 78-year-old lady, patient of Dr. Fred Julian, with past medical history significant for coronary artery disease, atherosclerotic heart disease. She is status post coronary artery bypass graft. According to the patient, she had been seen in followup by her washing machine assembler same day of her admission and she was found to be in her usual state of health. Last evening, she got up to use the commode and suddenly became faint and passed out briefly. There was no significant trauma, but some bruising of the skin. The patient was brought to the emergency room for evaluation and she was admitted for observation. She was treated with bedrest, IV fluids. Serial determinations of BMP revealed that the patient had a mild degree of dehydration and elevated BUN and creatinine over the baseline. She had a CT scan of the brain, which was negative for any acute changes. She had a chest x-ray, which was negative for any pulmonary congestion or cardiomegaly. She was checked for orthostasis. There was a very mild drop of the systolic BP with standing. Her dose of nifedipine were held and with this, the patient returned to her usual state of health. She is being discharged home in stable condition. She is asked to contact her washing machine assembler and inform of the vasovagal syncope episode and decide about current medications. MD ODESSA Owen/FARTUN /[id number]
== END 2019-01-22 11:30 | disposition home or self-care (01) ==
LOC: ER 03:21 → ERHOLD 05:13 → IMCU 06:19
PROVIDERS: ADMIT Internal Medicine; ATTEND Internal Medicine
DX: R55 Syncope and collapse (principal); E86.0 Dehydration; I25.10 Atherosclerotic heart disease of native coronary artery without angina pectoris; Z95.1 Presence of aortocoronary bypass graft; Z23 Encounter for immunization; I25.2 Old myocardial infarction; E11.42 Type 2 diabetes mellitus with diabetic polyneuropathy; Z85.528 Personal history of other malignant neoplasm of kidney; Z90.5 Acquired absence of kidney; W01.0XXA Fall on same level from slipping, tripping and stumbling without subsequent striking against object, initial encounter; Y93.01 Activity, walking, marching and hiking; Y92.012 Bathroom of single-family (private) house as the place of occurrence of the external cause; Z82.49 Family history of ischemic heart disease and other diseases of the circulatory system; N18.9 Chronic kidney disease, unspecified; S00.83XA Contusion of other part of head, initial encounter; E83.42 Hypomagnesemia; Z79.82 Long term (current) use of aspirin; Z79.84 Long term (current) use of oral hypoglycemic drugs
CPT/HCPCS: 36415 ×2; 70450; 71045; 72125; 80053 ×2; 80061; 81001; 82550; 82553; 82948 ×2; 83735 ×2; 84484; 85025 ×2; 85610; 85730; 87086; 90732; 93005; 96365; 99284; G0009; G0378 ×2; J3475; J7030; S0164 ×2

== ENCOUNTER 2023-11-24 16:31 | Emergency (ER) | payer MEDICARE ==
[~2023-11-24] VITALS: Ht 157.5 cm; Wt 78.0 kg
[~2023-11-24 16:31] MED LIST changes: +PANTOPRAZOLE SO40 MG PO; +ZEMPLAR1 MCG PO
[2023-11-24 17:42] LABS: BASOPHILS % 0.5 % (0.0-1.0); EOSINOPHILS # (AUTO) 0.5 (0.0-0.4); EOSINOPHILS % 8.2 % (0.0-6.0); HEMATOCRIT 32.7 % (34.2-44.1); HEMOGLOBIN 10.1 g/dL (12.0-16.0); LYMPHOCYTES # (AUTO) 1.4 (1.0-3.2); LYMPHOCYTES % 21.5 % (18.0-39.1); MEAN CORPUSCULAR HEMOGLOBIN 32.7 pg (28-32); MEAN CORPUSCULAR HGB CONC 30.9 g/dL (31-35); MEAN CORPUSCULAR VOLUME 105.8 fL (81-99); MONOCYTES # (AUTO) 0.6 (0.2-0.8); MONOCYTES % 9.8 % (4.4-11.3); NEUTROPHILS # (AUTO) 3.9 (2.1-6.9); NEUTROPHILS % 59.5 % (38.7-80.0); PLATELET COUNT 229 x10e3/uL (140-360); RED BLOOD COUNT 3.09 x10e6/uL (3.6-5.1); RED CELL DISTRIBUTION WIDTH 14.6 % (11.7-14.4)
[2023-11-24 18:04] LABS: ALBUMIN/GLOBULIN RATIO 1.4 (0.8-2.0); ANION GAP 21.3 mmol/L (8-16); BILIRUBIN,TOTAL 0.5 mg/dL (0.2-1.2); CALCIUM 9.6 mg/dL (8.4-10.2); CREATININE, SERUM 2.36 mg/dL (0.57-1.11); INFLUENZAE A&B ANTIGEN (RAPID) NEGATIVE (NEGATIVE); MAGNESIUM 1.8 MG/DL (1.3-2.1); POTASSIUM 4.3 mmol/L (3.5-5.1); TOTAL PROTEIN 6.9 g/dL (6.5-8.1)
[2023-11-24 18:05] LABS: RESPIRATORY SYNC. VIRUS NEGATIVE (NEGATIVE)
[2023-11-24 18:11] LABS: TROPONIN I 0.087 ng/mL (0-0.300)
[2023-11-24 18:17] LABS: INR 1.21; PROTHROMBIN TIME 16.1 seconds (11.9-14.5)
[2023-11-24 18:20] LABS: PARTIAL THROMBOPLASTIN TIME 35.9 seconds (23.8-35.5)
[2023-11-24] MEDS: ONDANSETRON HCL INJ 2MG/ML 2ML 2 MG/ML VIAL IV STA (19:59)
[2023-11-24] MEDS: Morphine 2mg Syringe 2 MG/ML SYR IV STA (19:59)
[2023-11-24] MEDS: ASPIRIN 81 MG CHEW TAB PO STA (20:00)
[2023-11-24 21:03] VITALS: PULSE 74; RESP 18; TEMP 98; O2SAT 99
[2023-11-24] MEDS: Morphine 4mg INJECTION 4 MG/ML INJ IV ONE (22:30)
== END 2023-11-25 05:55 | disposition other institution (70) ==
LOC: ER 17:03
DX: I20.0 Unstable angina (principal); R07.9 Chest pain, unspecified; I10 Essential (primary) hypertension; E11.65 Type 2 diabetes mellitus with hyperglycemia; E11.40 Type 2 diabetes mellitus with diabetic neuropathy, unspecified; E78.5 Hyperlipidemia, unspecified; K21.9 Gastro-esophageal reflux disease without esophagitis; F41.9 Anxiety disorder, unspecified; Z11.52 Encounter for screening for COVID-19; R94.31 Abnormal electrocardiogram [ECG] [EKG]; I25.2 Old myocardial infarction; Z95.1 Presence of aortocoronary bypass graft; Z85.528 Personal history of other malignant neoplasm of kidney
CPT/HCPCS: 36415; 71045; 80053; 82550; 83735; 83880; 84484; 85025; 85610; 85730; 87400; 87420; 93005; 99284; J2270 ×2; J2405; U0002